=== PATIENT | female | born 1995 | race Caucasian/White ===

== ENCOUNTER 2019-09-28 06:14 | Inpatient (IN) ==
[2019-09-28] MEDS ORDERED: Potassium Effervescent 25 MEQ TABLET.EFF PO ONE (06:53)
[2019-09-28] MEDS ORDERED: levETIRAcetam 250 MG TABLET PO STA (15:03)
[2019-09-28] MEDS: Acetaminophen 325 MG TABLET PO PRN (20:56)
[2019-09-29] MEDS ORDERED: levETIRAcetam 250 MG TABLET PO SCH (09:00)
[2019-09-29] MEDS: Prenatal Vit/FA 1 EACH TABLET PO SCH (13:07)
[2019-09-29] MEDS: Acetaminophen 325 MG TABLET PO PRN (20:27)
[2019-09-29] MEDS ORDERED: lamoTRIgine 25 MG TABLET PO SCH (21:00)
[2019-09-30] MEDS: Prenatal Vit/FA 1 EACH TABLET PO SCH (09:57)
[2019-09-30] MEDS: Acetaminophen 325 MG TABLET PO PRN (10:02)
[2019-09-30 10:12] VITALS: BP 100/62
[2019-09-30] MEDS ORDERED: Folic Acid 1 MG TABLET PO SCH (11:15)
== END 2019-09-30 18:20 | disposition home or self-care (01) | DRG 566 ==
LOC: EMEROOARM 06:14 → 1ANU 09:31
PROVIDERS: ADMIT Psychiatry & Neurology Psychiatry; ATTEND Psychiatry & Neurology Psychiatry